=== PATIENT | male | born 1950 | race Caucasian/White ===

== ENCOUNTER 2019-06-19 05:36 | Emergency (ER) | payer OTHER ==
[2019-06-19 06:29] LABS: Absolute Lymphocytes (CBC) 1.8 K/uL (0.7-4.9); Basophils % 1.2 % (0-1.3); Hematocrit 42.5 % (39.6-49.0); Lymphocytes % 30.9 % (15.3-44.8); MPV 8.4 fL (7.6-11.3); RBC Red Blood Cell Count 4.67 M/uL (4.33-5.43)
[2019-06-19 06:41] LABS: Protime INR 0.99
[2019-06-19 06:50] LABS: ALT/SGPT 49 U/L (12-78); AST/SGOT 30 U/L (15-37); Albumin 3.4 g/dL (3.4-5.0); Alkaline Phosphatase 63 U/L (45-117); BUN Blood Urea Nitrogen 17 mg/dL (7-18); Bicarbonate 26 mmol/L (21-32); Bilirubin Direct 0.2 mg/dL (0-0.2); Bilirubin Total 0.5 mg/dL (0.2-1.0); Glucose Level 97 mg/dL (74-106); Magnesium 2.5 mg/dL (1.8-2.4); NT PRO-BNP 115 pg/mL (<125); Potassium 3.7 mmol/L (3.5-5.1); Protein, Total 6.6 g/dL (6.4-8.2); Sodium Level 144 mmol/L (136-145); Troponin (Emerg Dept Use Only) < 0.02 ng/mL (0.0-0.045)
--- NOTE | 2019-06-19 08:30 | RAD REPORT ---
EXAM DESCRIPTION: Antonio Single View06/19/2019 7:27 am CLINICAL HISTORY: Chest pain COMPARISON: none FINDINGS: The lungs appear clear of acute infiltrate. The heart is normal size IMPRESSION: No acute abnormalities displayed
--- NOTE | 2019-06-19 09:21 | EDPHYS ---
Physician Documentation [facility] Name: Kevon Alicea Age: 69 yrs Sex: Male : 1950 Arrival Date: 06/19/2019 Time: 05:37 Bed 15 Private MD: ED Physician Kofi Pena HPI: 06/19 06:19 This 69 yrs old Male presents to ER via Ambulatory with complaints of Chest kb Pain. 06:19 The patient or guardian reports chest pain that is located primarily in the chest kb diffusely. Onset: at 04:00. The pain radiates to left neck, left jaw. Associated signs and symptoms: The patient has no apparent associated signs or symptoms. The chest pain is described as "tight". Duration: The patient or guardian reports a single episode, that is now resolved. Modifying factors: The symptoms are alleviated by nothing. the symptoms are aggravated by nothing. Severity of pain: At its worst the pain was moderate in the emergency department the pain has resolved. The patient has not experienced similar symptoms in the past. The patient has not recently seen a physician. Pt reports he woke up with diffuse chest tightness and belching at 0400. States the pain radiated up to left neck/jaw. Pain has now resolved without any intervention. . Historical: - Allergies: 06:11 No Known Allergies; wh - PMHx: 06:11 Diabetes - IDDM; Hyperlipidemia; Hypertension; wh - PSHx: 06:11 Gastric Band; wh - Immunization history:: Adult Immunizations up to date. - Social history:: Smoking status: Patient/guardian denies using tobacco. - Ebola Screening: : Patient negative for fever greater than or equal to 101.5 degrees Fahrenheit, and additional compatible Ebola Virus Disease symptoms Patient denies exposure to infectious person. ROS: 06:30 Constitutional: Negative for fever, chills, and weight loss, ENT: Negative for injury, kb pain, and discharge, Neck: Negative for injury, pain, and swelling, Respiratory: Negative for shortness of breath, cough, wheezing, and pleuritic chest pain, Abdomen/GI: Negative for abdominal pain, nausea, vomiting, diarrhea, and constipation, Back: Negative for injury and pain, MS/Extremity: Negative for injury and deformity, Skin: Negative for injury, rash, and discoloration, Neuro: Negative for headache, weakness, numbness, tingling, and seizure. 06:30 Cardiovascular: Positive for chest pain, Negative for edema, orthopnea, palpitations, paroxysmal nocturnal dyspnea. Exam: 06:31 Constitutional: This is a well developed, well nourished patient who is awake, alert, kb and in no acute distress. Head/Face: Normocephalic, atraumatic. ENT: Nares patent. No nasal discharge, no septal abnormalities noted. Tympanic membranes are normal and external auditory canals are clear. Oropharynx with no redness, swelling, or masses, exudates, or evidence of obstruction, uvula midline. Mucous membranes moist. Neck: Trachea midline, no thyromegaly or masses palpated, and no cervical lymphadenopathy. Supple, full range of motion without nuchal rigidity, or vertebral point tenderness. No Meningismus. Chest/axilla: Normal chest wall appearance and motion. Nontender with no deformity. No lesions are appreciated. Cardiovascular: Regular rate and rhythm with a normal S1 and S2. No gallops, murmurs, or rubs. Normal PMI, no JVD. No pulse deficits. Respiratory: Lungs have equal breath sounds bilaterally, clear to auscultation and percussion. No rales, rhonchi or wheezes noted. No increased work of breathing, no retractions or nasal flaring. Abdomen/GI: Soft, non-tender, with normal bowel sounds. No distension or tympany. No guarding or rebound. No evidence of tenderness throughout. Skin: Warm, dry with normal turgor. Normal color with no rashes, no lesions, and no evidence of cellulitis. MS/ Extremity: Pulses equal, no cyanosis. Neurovascular intact. Full, normal range of motion. Neuro: Awake and alert, GCS 15, oriented to person, place, time, and situation. Cranial nerves II-XII grossly intact. Motor strength 5/5 in all extremities. Sensory grossly intact. Cerebellar exam normal. Normal gait. Vital Signs: 06:08 BP 130 / 87; Pulse 71; Resp 18; Temp 98.1; Pulse Ox 99% on R/A; wh 08:55 BP 146 / 78; Pulse 65; Resp 16 S; Pulse Ox 98% on R/A; jl7 MDM: 06:06 Patient medically screened. kb 06:30 The patient was not given aspirin in the Emergency Department. Patient reports taking aspirin within the past 24 hours. FAUSTO Risk Score: 1 - patient's age is greater or equal to 65 years. Data reviewed: vital signs, nurses notes. Data interpreted: Pulse oximetry: on room air is 99 %. Interpretation: normal. 06:30 ED course: HEART Score 4. kb 06:56 Counseling: I had a detailed discussion with the patient and/or guardian regarding: the kb historical points, exam findings, and any diagnostic results supporting the discharge/admit diagnosis, lab results, radiology results, the need for further work-up and treatment in the hospital. ED course: This is pt's first episode of chest pain, has no cardiac history, pain lasted approx 2 hours before resolving. Pt has history of diabetes, hypertension and hyperlipidemia. Discussed case with ERP and he recommends admitting for observation based on above information. . 06:56 Data reviewed: and as a result, I will admit patient. kb 07:01 ED course: Pt states he that if everything looks ok he is not staying here, he wants to kb go home. Discussed risks of leaving at this time. Convinced pt to stay for a repeat troponin and EKG two hours after the first was drawn. . 09:18 ED course: Pt educated on second troponin and EKG that were unchanged since the first. kb Still recommend admission, but pt states he feels fine now and wants to go home. Educated to follow up with DR Montiel. Pt saw [facility] in the past for routine workup including negative stress test at the time. . 06/19 06:11 Order name: Basic Metabolic Panel; Complete Time: 06:54 kb 06/19 06:11 Order name: CBC with Diff; Complete Time: 06:31 kb 06/19 06:11 Order name: LFT's; Complete Time: 06:54 kb 06/19 06:11 Order name: Magnesium; Complete Time: 06:54 kb 06/19 06:11 Order name: NT PRO-BNP; Complete Time: 06:54 kb 06/19 06:11 Order name: PT-INR; Complete Time: 06:47 kb 06/19 05:42 Order name: EKG; Complete Time: 05:43 rn 06/19 05:42 Order name: EKG - Nurse/Tech; Complete Time: 05:57 rn 10/16 06:11 Order name: Troponin (emerg Dept Use Only); Complete Time: 06:54 kb 06/19 06:11 Order name: XRAY Chest (1 view); Complete Time: 08:34 kb 06/19 06:11 Order name: Cardiac monitoring; Complete Time: 06:13 kb 06/19 08:35 Order name: EKG; Complete Time: 08:35 kb 06/19 08:35 Order name: Troponin (emerg Dept Use Only); Complete Time: 09:17 kb 06/19 06:11 Order name: IV Saline Lock; Complete Time: 06:13 kb 06/19 06:11 Order name: Labs collected and sent; Complete Time: 06:13 kb 06/19 06:11 Order name: O2 Per Protocol; Complete Time: 06:13 kb 06/19 06:11 Order name: O2 Sat Monitoring; Complete Time: 06:13 kb 06/19 08:35 Order name: EKG - Nurse/Tech; Complete Time: 08:55 kb Administered Medications: 06:38 Not Given (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 rn Disposition: 06/19/19 09:20 Discharged to Home. Impression: Chest pain, unspecified. - Condition is Stable. - Discharge Instructions: Nonspecific Chest Pain, [id number]. - Medication Reconciliation Form, Thank You Letter, Antibiotic Education, Prescription Opioid Use form. - Follow up: Emergency Department; When: As needed; Reason: Worsening of condition. Follow up: Private Physician; When: 2 - 3 days; Reason: Recheck today's complaints, Continuance of care, Re-evaluation by your physician. Signatures: Dispatcher [employer] EDMS Nany Ferreira, FUSE COILER-C FUSE COILER-Kofi Tello MD MD rn Leal, Jahala, RN RN Ivan Zaldivar Corrections: (The following items were deleted from the chart) 09:21 06:56 ED course: This is pt's first episode of chest pain, has no cardiac history, pain kb lasted approx 2 hours before resolving. Pt has history of diabetes, hypertension and hyperlipidemia. Discussed case with ERP and he recommends admitting for observation based on above information. . kb 09:39 09:20 06/19/2019 09:20 Discharged to Home. Impression: Chest pain, unspecified. jl7 Condition is Stable. Forms are Medication Reconciliation Form, Thank You Letter, Antibiotic Education, Prescription Opioid Use. Follow up: Emergency Department; When: As needed; Reason: Worsening of condition. Follow up: Private Physician; When: 2 - 3 days; Reason: Recheck today's complaints, Continuance of care, Re-evaluation by your physician. kb
--- NOTE | 2019-06-19 09:21 | ER ---
Nurse's Notes [facility] Name: Kevon Alicea Age: 69 yrs Sex: Male : 1950 Arrival Date: 06/19/2019 Time: 05:37 Bed 15 Private MD: Diagnosis: Chest pain, unspecified Presentation: 06/19 06:06 Presenting complaint: Patient states: He woke up at 4;00 am and developed chest pain wh 6/10 on a pain scale radiating to his neck and jaw. Pt took 4 baby aspirin at home and pain was not relieved. Transition of care: patient was not received from another setting of care. Onset of symptoms was June 19, 2019. Risk Assessment: Do you want to hurt yourself or someone else? Patient reports no desire to harm self or others. Initial Sepsis Screen: Does the patient meet any 2 criteria? No. Patient's initial sepsis screen is negative. Does the patient have a suspected source of infection? No. Patient's initial sepsis screen is negative. Care prior to arrival: None. 06:06 Method Of Arrival: Ambulatory 06:06 Acuity: ABRAHAM 3 Triage Assessment: 06:11 General: Behavior is calm, cooperative, appropriate for age. Historical: - Allergies: 06:11 No Known Allergies; - PMHx: 06:11 Diabetes - IDDM; Hyperlipidemia; Hypertension; - PSHx: 06:11 Gastric Band; - Immunization history:: Adult Immunizations up to date. - Social history:: Smoking status: Patient/guardian denies using tobacco. - Ebola Screening: : Patient negative for fever greater than or equal to 101.5 degrees Fahrenheit, and additional compatible Ebola Virus Disease symptoms Patient denies exposure to infectious person. Screenin:11 Abuse screen: Denies threats or abuse. Denies injuries from another. Nutritional screening: No deficits noted. Tuberculosis screening: No symptoms or risk factors identified. Fall Risk None identified. Assessment: 06:08 General: Appears in no apparent distress. Pain: Complains of pain in chest Pain wh radiates to neck Pain currently is 2 out of 10 on a pain scale. at worst was 6 out of 10 on a pain scale. Quality of pain is described as pressure, Pain began 2 hours ago. Neuro: Level of Consciousness is awake, alert, obeys commands, Oriented to person, place, time, situation, Appropriate for age. Cardiovascular: Heart tones S1 S2 Capillary refill < 3 seconds Rhythm is regular. Respiratory: Airway is patent Respiratory effort is even, unlabored, Respiratory pattern is regular, symmetrical, Breath sounds are clear bilaterally. GI: Abdomen is flat, non-distended. : No signs and/or symptoms were reported regarding the genitourinary system. EENT: No signs and/or symptoms were reported regarding the EENT system. Derm: Skin is intact, is healthy with good turgor, Skin is pink, warm \T\ dry. normal. Musculoskeletal: Circulation, motion, and sensation intact. 07:00 Reassessment: Patient appears in no apparent distress at this time. Patient and/or jl7 family updated on plan of care and expected duration. Pain level reassessed. Patient is alert, oriented x 3, equal unlabored respirations, skin warm/dry/pink. Patient denies pain at this time. 08:00 Reassessment: Patient appears in no apparent distress at this time. No changes from 7 previously documented assessment. Patient and/or family updated on plan of care and expected duration. Pain level reassessed. Patient is alert, oriented x 3, equal unlabored respirations, skin warm/dry/pink. Vital Signs: 06:08 BP 130 / 87; Pulse 71; Resp 18; Temp 98.1; Pulse Ox 99% on R/A; wh 08:55 BP 146 / 78; Pulse 65; Resp 16 S; Pulse Ox 98% on R/A; jl7 ED Course: 05:37 Patient arrived in ED. ds1 05:57 Ivan De Leon is Primary Nurse. 06:06 Nany Ferreira FNP-C is PHCP. kb 06:06 Kofi Pena MD is Attending Physician. kb 06:08 Triage completed. 06:11 Arm band placed on right wrist. 06:12 Patient has correct armband on for positive identification. Bed in low position. Call light in reach. Side rails up X 1. nuclear monitoring technician on. Pulse ox on. NIBP on. 06:12 Inserted saline lock: 20 gauge in right antecubital area, using aseptic technique. Blood collected. Patient maintains SpO2 saturation greater than 95% on room air. 07:28 XRAY Chest (1 view) In Process Unspecified. EDMS 08:44 EKG done, by collision technician. reviewed by Nany LOAIZA. at1 08:55 Repeat lab(s) drawn. by me, sent to lab. jl7 09:38 No provider procedures requiring assistance completed. IV discontinued, intact, jl7 bleeding controlled, No redness/swelling at site. Pressure dressing applied. 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 kwasi 09:38 Discharged to home ambulatory. jl7 09:38 Condition: stable 09:38 Discharge instructions given to patient, family, Instructed on discharge instructions, follow up and referral plans. Demonstrated understanding of instructions, follow-up care. 09:39 Patient left the ED. jl7 Signatures: Dispatcher [employer] Nany Cooper, STUDIO MUSICIAN-C STUDIO MUSICIAN-CkNisha Jamil ds1 Christine Nash, tower technician EKG Tat1 Armando Kauffman, RN RN jl7 Ivan De Leon
--- NOTE | 2019-06-19 09:32 | EKG ---
Test Date: 2019-06-19 Test Time: 08:39:39 Glove Presser: JULIAN MEASUREMENT RESULTS: Intervals: Rate: 60 CA: 234 QRSD: 134 QT: 412 QTc: 412 [place]: P: 45 CA: 234 QRS: -17 T: 10 INTERPRETIVE STATEMENTS: Sinus rhythm with 1st degree AV block Nonspecific intraventricular block Abnormal ECG Compared to ECG 06/19/2019 05:52:26 No significant changes Electronically Signed On 06-19-19 09:31:22 CDT by Josue Bentley
--- NOTE | 2019-06-19 09:33 | EKG ---
Test Date: 2019-06-19 Test Time: 05:52:26 Marketing Content Specialist: ORI MEASUREMENT RESULTS: Intervals: Rate: 71 GA: 234 QRSD: 134 QT: 412 QTc: 447 [place]: P: 26 GA: 234 QRS: -9 T: 9 INTERPRETIVE STATEMENTS: Sinus rhythm with 1st degree AV block Nonspecific intraventricular block Abnormal ECG Compared to ECG 06/17/2017 13:34:31 No significant changes Electronically Signed On 06-19-19 09:32:43 CDT by Josue Bentley
[2019-06-19 09:46] VITALS: TEMP 98.1
[2019-06-19 09:47] VITALS: BP 146/78; O2SAT 98
== END 2019-06-19 09:39 | disposition home or self-care (01) ==
LOC: ER 05:36
DX: R07.9 Chest pain, unspecified (principal)
CPT/HCPCS: 36415; 71045; 80048; 80076; 83735; 83880; 84484; 85025; 85610; 93005; 99285

== ENCOUNTER 2021-01-14 15:24 | Observation (INO) | payer OTHER ==
--- OUTSIDE RECORDS SUMMARY | 2021-01-14 15:32 | XMS REPORT | Continuity of Care Document ---
:1950 Author Organization [facility] t Address [address] [place] [address] Care Team Providers Name Role Phone Lisbeth Turner MD Attending Clinician Doctor Unassigned, Name Attending Clinician Unavailable Chetna Unger Attending Clinician Celia Trejo Admitting Clinician Payers Payer Name Policy Type Policy Number Effective Date Expiration Date S ource Problems Condition Condition Condition Status Onset Resolution Last Treating Co mments Source Name Details Category Date Date Treatment Clinician Date SDH Diagnosis Active 2016-092017-06-17 Mem oria 0-14 18:06:00 l SDH 00:00: [place] 00 Active 06/17/2017 [facility] SDH Diagnosis Active 2016-092018-01-12 Mem oria SUBDURAL 0-14 10:42:00 l HEMATOMA, SDH 00:00: [place] SCAULA FX, SUBDURAL 00 RIB FX HEMATOMA, SCAULA FX, RIB FX Active 06/17/2017 [facility] Sinusitis Problem Resolve 2017-06-29 M emoria (disorder) d 00:57:10 l [place]avo Sinusitis (disorder) Resolved Problem 06/29/2017 [facility] NONTRAUMAT Diagnosis Active 2018-01-12 Memoria IC 10:42:00 l SUBARACHNO Simone n ID NONTRAUMAT HEMORRHAGE IC , UN SUBARACHNO ID HEMORRHAGE , UN Active [facility] FRACTURE Diagnosis Active 2018-01-12 M emoria OF UNSP 10:42:00 l PART OF FRACTURE Claudia nn SCAPULA, OF UNSP UNSP S PART OF SCAPULA, UNSP S Active [facility] FRACTURE Diagnosis Active 2018-01-12 M emoria OF ONE 10:42:00 l RIB, UNSP FRACTURE Her carcamo SIDE, INIT OF ONE FOR RIB, UNSP SIDE, INIT FOR Active [facility] Benign Problem Resolve 2017-06-29 Sanjay gavi prostatic d 00:57:10 l hyperplasi Benign Herm akshat a prostatic (disorder) hyperplasi a (disorder) Resolved Problem 06/29/2017 [facility] Diabetes Problem Resolve 2017-06-29 Me moria mellitus d 00:57:10 l (disorder) Diabetes He rmann mellitus (disorder) Resolved Problem 06/29/2017 [facility] dm Problem Resolve 2017-06-29 Sanjay gavi (qualifier d 00:57:10 l value) dm [place] (qualifier value) Resolved Problem 06/29/2017 [facility] Hyperlipid Problem Resolve 2017-06-29 Memoria emia d 00:57:10 l (disorder) Simone n Hyperlipid emia (disorder) Resolved Problem 06/29/2017 [facility] Essential Problem Resolve 2017-06-29 M emoria hypertensi d 00:57:10 l on [place] (disorder) Essential hypertensi on (disorder) Resolved Problem 06/29/2017 [facility] Hypertensi Problem Resolve 2017-06-29 Memoria ve d 00:57:10 l disorder, [place] systemic Hypertensi arterial ve (disorder) disorder, systemic arterial (disorder) Resolved Problem 06/29/2017 [facility] Allergies, Adverse Reactions, Alerts Allergy Allergy Status Severity Reaction(s) Onset Inactive Treating Comm ents Source Name Type Date Date Clinician No Known DA Active U 2018-09 [facility]: [address] No Known DA Active U 2018-09 [facility]: [address] No Known DA [facility] [place] [facility] 00:00: [address] No Known DA [facility] Drug 01-02 [place] [facility] 00:[facility]: [address] No Known DA [facility] 01-02 [place] [facility] 00:00: [address] No Known DA [facility] Other 01-02 [place] [facility] 00:00: [address] Social History Social Habit Start Date Stop Date Quantity Comments Source Social History 2017-06-18 2017-06-18 [facility] 05:20:48 05:20:48 Medications Ordered Filled Start Stop Current Ordering Indication Dosage Frequency Signature Comments Components Source Medication Medication Date Date Medication? Clinician (SIG) Name Name Acetaminoph 2016-09 Yes 650 mg = 2 Memoria en 325 MG 0-23 cap, PO, l Oral 18:18: TID, PRN [place] Capsule 00 pain 1-5, [Tylenol] X 7 day, # 42 cap, 0 Refill(s), Pharmacy: [facility]08 tramadol 2016-09 Yes 100 mg = 2 Mem oria hydrochlori 0-23 tab, PO, l de 50 MG 18:18: Q6H, PRN Claudia nn Oral Tablet 00 Pain Score 6-10, X 7 day, # 56 tab, 0 Refill(s) lisinopril 2016-09 Yes 40 mg = 1 Me moria 40 mg oral 0-23 tab, PO, l tablet 17:33: Daily, # Gustavo 00 30 tab, 0 Refill(s), Pharmacy: [facility] 8 Aspirin 325 2016-09 Yes 325 mg = 1 Memoria MG Enteric 0-23 tab, PO, l Coated 17:33: Daily, # [place]avo Tablet 00 14 tab, 0 Refill(s), Pharmacy: [facility]08 gabapentin 2016-09 Yes 100 mg = 1 M emoria 100 MG Oral 0-23 cap, PO, l Capsule 17:33: Q8H, # 42 Claudia nn 00 cap, 0 Refill(s), Pharmacy: [facility]08 Docusate 2016-09 Yes 100 mg = 1 Mem oria Sodium 100 0-23 cap, PO, l MG Oral 17:33: Q12H, # 20 Herm akshat Capsule 00 cap, 0 Refill(s), Pharmacy: [facility]08 cetirizine 2016-09 Yes 10 mg = 1 Me moria 10 mg oral 0-23 tab, PO, l tablet 17:33: Daily, PRN Claudia nn 00 Allergies, # 30 tab, 0 Refill(s), Pharmacy: [facility] amLODIPine 2016-09 Yes 10 mg = 1 Me moria 10 mg oral 0-23 tab, PO, l tablet 17:33: Daily, # Gustavo 00 30 tab, 0 Refill(s), Pharmacy: [facility] Nystatin 2016-09 Yes 1 appl, Memori a 100 UNT/MG 0-23 TOP, QID, l Topical 17:33: apply to Simone n Powder 00 right upper arm, X 7 day, # 15 gm, 0 Refill(s), Pharmacy: [facility] Lidocaine 2016-09 Yes 1 patch, Sanjay gavi Hydrochlori 0-23 TOP, Q24H, l de 0.05 17:33: remove [place] MG/MG 00 patches Transdermal after 12 Patch hours, # [Lidoderm] 14 patch, 0 Refill(s), Pharmacy: [facility] POLYETHYLEN 2016-09 Yes 17 gm, PO, Memoria E GLYCOL 0-23 Daily, l 3350 142 17:33: dissolve Claudia nn MG/ML Oral 00 in water Solution or juice [Miralax] hold for diarrhea, X 12 day, # 12 ea, 0 Refill(s), Pharmacy: [facility] Hydralazine 2016-09 Yes 25 mg = 1 M emoria Hydrochlori 0-23 tab, PO, l de 25 MG 17:33: Q6H, # 120 Her carcamo Oral Tablet 00 tab, 0 Refill(s), Pharmacy: [facility] Hydralazine 2016-09 No Notes: Sanjay gavi Hydrochlori 0-23 (Same as: l de 25 MG 05:00: Apresoline Her carcamo Oral Tablet 00 ) May interfere w/enteral feedings Take With Food. Iohexol 2016-09 No Notes: Memoria 0-22 (Same l 19:52: as:Omnipaq Gustavo 00 ue 350). WASTE: F/P - Black; E - Municipal Trash Bin Albuterol 2016-09 No Notes: SEE Me moria 0.83 MG/ML 0-22 RT l Inhalant 18:42: DOCUMENTAT Her carcamo Solution 00 ION (Same as: Proventil) Insulin 2016-09 No Notes: Memoria Glargine 0-22 Same as: l 100 UNT/ML 14:00: Lantus) Do H ermann Injectable 00 not hold Solution insulin [Lantus] without contacting prescriber WASTE: F/P - Black; E - Municipal Trash Bin Amlodipine 2016-09 No Notes: Memor ia 0-22 (Same as: l 14:00: Norvasc) Gustavo 00 Lisinopril 2016-09 No Notes: Memor ia 0-21 (Same as: l 14:00: Prinivil, Gustavo 00 Zestril) Lisinopril 2016-09 No Notes: Memor ia 0-20 (Same as: l 14:52: Prinivil, Gustavo 00 Zestril) Labetalol 2016-09 No 10 mg, 2 Sanjay gavi 0-20 mL, Route: l 05:08: IVP, Drug Gustavo 00 form: INJ, Q15Min, Dosing Weight 113.636, kg, PRN Hypertensi on, Start date: 06/23/17 0:08:00 CDT, Duration: 3 doses or times, Stop date: 07/23/17 0:00:00 BIOLOGY PROFESSOR tramadol 2016-09 No 2 tab, Memoria hydrochlori 0-20 Route: PO, l de 50 MG 03:21: Drug form: Her carcamo Oral Tablet 00 TAB, ONCE, Dosing Weight 113.636, kg, Start date: 06/22/17 22:21:00 CDT, Stop date: 06/22/17 22:21:00 CDT Calmoseptin 2016-09 No Notes: Sanjay gavi e 0-19 (Same as: l 22:00: Calmosepti Gustavo 00 ne) Amlodipine 2016-09 No Notes: Memor ia 0-19 (Same as: l 20:17: Norvasc) Gustavo 00 Fluticasone 2016-09 No Notes: Sanjay gavi propionate 0-19 (Same as: l 0.05 20:14: Flonase) [place] MG/ACTUAT 00 Metered Dose Nasal [place] [Flonase] molasses 2016-09 No Notes: Memoria 0-19 (Same l 20:13: as:Molasse [place] 00 s) Dulcolax 2016-09 No Notes: Memoria Laxative 0-19 (Same As: l 20:12: Dulcolax, [place] 00 Bisco-Lax) Miralax 2016-09 No Notes: Memoria 0-19 Dissolve l 17:50: in 8 oz of Gustavo 00 water or juice. (Same as: Miralax) Streptococc 2016-09 No Notes: Sanjay gavi us 0-19 Shake well l pneumoniae 14:00: prior to Her carcamo serotype 1 00 use (Same capsular as: antigen Prevnar diphtheria 13) [id number] protein conjugate vaccine / Streptococc us pneumoniae serotype 14 capsular antigen diphtheria [id number] protein conjugate vaccine / Streptococc us pneumoniae serotype 18C capsular antigen d Lisinopril 2016-09 No Notes: Memor ia 0-19 (Same as: l 14:00: Prinivil, Gustavo 00 Zestril) influenza 2016-09 No Notes: Memori a virus 0-19 (Same as: l vaccine, 14:00: Fluzone Simone n inactivated 00 Quadrivale nt, Fluarix Quadrivale nt) For 3 years of age and older (0.5 mL IM) Shake well before use Acetaminoph 2016-09 No Notes: Do M emoria en 0-19 not exceed l 10:59: 4 gm/day. [place] 00 (Same as: Tylenol) Zofran 2016-09 No Notes: Memoria 0-19 (Same as: l 00:00: Zofran) Gustavo 00 MEDICATION WASTE Product Size: 4 mg Product Wasted: _0__ mg Nystatin 2016-09 No Notes: Memoria 100 UNT/MG 0-18 (Same l Topical 18:00: as:Mycosta Herm akshat Powder 00 tin, Nilstat) For external use only. cetirizine 2016-09 No Notes: Memor ia 0-18 (Same As: l 13:13: Zyrtec) Gustavo 00 Claritin 2016-09 No 10 mg, Memoria 0-18 Route: PO, l 12:53: Drug form: Gustavo 00 TAB, Daily, Dosing Weight 113.636, kg, PRN Allergies, Start date: 06/21/17 7:53:00 CDT, Duration: 30 day, Stop date: 07/21/17 7:52:00 BIOLOGY PROFESSOR Zofran 2016-09 No Notes: Memoria 0-18 (Same as: l 10:40: Zofran) [place] MEDICATION WASTE Product Size: 4 mg Product Wasted: ___ mg Aspirin 325 2016-09 No Notes: (Do Memoria MG Enteric 0-17 Not Crush) l Coated 20:00: Do not Gustavo Tablet 00 crush or chew. Acetaminoph 2016-09 No Notes: Sanjay gavi en 325 MG / 0-17 (Same as: l Hydrocodone 13:41: [place] Claudia nn Bitartrate 00 325/5) Do 5 MG Oral not exceed Tablet 4gm/day of [[place] acetaminop 5/325] hen. Deep Sea 2016-09 No Notes: Memoria Nasal [place] 0-17 (Same as: l 03:17: [place], [place] Deep Sea Nasal [place]). Sodium 2016-09 No Notes: Memoria Chloride 0-16 (Same as: l 0.111 23:41: [place], [place] MEQ/ML 00 [place] Nasal [place] Nasal [[place]). brand of sodium chloride] Lisinopril 2016-09 No Notes: Memor ia 0-16 (Same as: l 22:43: Prinivil, Gustavo Zestril) 3 ML 2016-09 Yes 60 unit, Memoria insulin 0-16 SUB-Q, l degludec 18:41: Daily, 0 Claudia nn 200 UNT/ML 00 Refill(s) Pen Injector [Tresiba] Folic Acid 2016-09 No Notes: Memor ia 0-16 (Same as: l 14:00: Folvite) Gustavo Thiamine 2016-09 No Notes: Memoria 0-16 (Same As: l 14:00: Vitamin Gustavo B1) multivitami 2016-09 No Notes: Sanjay gavi n 0-16 (Same l 14:00: as:Thera) [place] WASTE: F/P - Black; E - Municipal Trash Bin Take with food. gabapentin 2016-09 No Notes: Memor ia 100 MG Oral 0-16 (Same as: l Capsule 05:00: Neurontin) Herm akshat Lovenox 2016-09 No Notes: Memoria 0-16 (Same as: l 02:00: Lovenox) Gustavo 00 sennosides, 2016-09 No Notes: Sanjay gavi FCI 0-16 (Same as: l 02:00: Senokot) empaglifloz 2016-09 Yes 1 tab, PO, Memoria in 5 MG / 0-15 BID, 0 l Metformin 22:45: Refill(s) Her carcamo hydrochlori 00 de 1000 MG Oral Tablet [Synjardy] 3 ML 2016-09 No SUB-Q, Memoria insulin 0-15 BID-Meals, l degludec 22:45: 0 [place] 100 UNT/ML 00 Refill(s) Pen Injector [Tresiba] remove 2016-09 No 1 patch, Memoria patch 0-15 Route: l 15:00: TOP, Q24H, [place] 00 Drug form: ERFILM, Start date: 06/18/17 10:00:00 CDT, Duration: 30 day, Stop date: 07/17/17 12:00:00 BIOLOGY PROFESSOR Marivelra 2016-09 No Notes: Memoria 0-15 (Same l 14:00: as:Keppra) Gustavo 00 Docusate 2016-09 No Notes: Memoria 0-15 (Same as: l 14:00: Colace) (Do Not Crush) Lidocaine 2016-09 No Notes: Memori a Hydrochlori 0-15 Apply only l de 0.05 03:00: once for Simone n MG/MG 00 up to 12 Transdermal hours in a Patch 24-hour [Lidoderm] period (12 hours on and 12 hours off). (Same as: Lidoderm) "Remove old patch before applicatio n of new patch" Acetaminoph 2016-09 No Notes: Max Memoria en 0-15 acetaminop l 02:13: hen 4000 Gustavo 00 mg/day (4 gm/day). (Same as: Tylenol Extra Strength) Tramadol 2016-09 No Notes: Not Mem oria 0-15 to exceed l 02:13: 400mg/day. [place] 00 (Same As: Ultram) pregabalin 2016-09 No Notes: Memor ia 0-15 (Same as: l 02:13: Lyrica) celecoxib 2016-09 No Notes: Memori a 0-15 NSAID. l 02:13: Please Gustavo 00 check indication . Not for seizure. (Same As: CeleBREX ) Insulin 2016-09 No 60 Memoria regular 0-15 units) l 02:09: WASTE: F/P [place] - Black; E - Municipal Trash Bin Stable for 28 days at room temperatur e Expires in days from ____Date BD Normal 2016-09 No Notes: Memori a Saline 0-15 (Same as: l Flush 02:00: BD Posiflush) Morphine 2016-09 No 4 mg, Memoria 0-14 Route: l 22:44: IVP, ONCE, Dosing Weight 117, kg, Priority: STAT, Start date: 06/17/17 17:44:00 CDT, Stop date: 06/17/17 17:44:00 CDT Levetiracet 2016-09 No Notes: Sanjay gavi am 500 MG 0-14 (Same l Oral Tablet 22:00: as:Keppra) Gustavo [Yoandy] iodixanol 2016-09 No 130 mL, Memor ia 0-14 Route: l 21:56: IVP, Drug Form: SOLN, Dosing Weight 117, kg, ONCALL, STAT, Start date: 06/17/17 16:56:00 CDT, Duration: 1 doses or times, Dose = 2.2ml/kg, Max dose = 150ml -- "To be infused by Radiology Staff ONLY" Keppra 2016-09 No 1,000 mg, Memori a 0-14 Route: IV, l 21:28: ONCE, Dosing Weight 117, kg, Start date: 06/17/17 16:28:00 CDT, Stop date: 06/17/17 16:28:00 CDT Morphine 2016-09 No 8 mg, Memoria 0-14 Route: l 20:52: IVP, ONCE, Dosing Weight 117, kg, Priority: STAT, Start date: 06/17/17 15:52:00 CDT, Stop date: 06/17/17 15:52:00 CDT Saline 2016-09 No Notes: Memoria Flush 0.9% 0-14 (Same as: l 20:23: BD [place] 00 Posiflush) Vital Signs Vital Name Observation Time Observation Value Comments Source Systolic (mm Hg) 2017-06-26 17:28:00 Sanjay rial [place] Diastolic (mm Hg) 2017-06-26 17:28:00 Mem orial [place] Temperature Oral (F) 2017-06-26 17:28:00 98.1 F [facility] [place] Respitory Rate 2017-06-26 17:28:00 Memori al [place]avo Heart Rate 2017-06-26 17:28:00 [facility] [place] Systolic (mm Hg) 2017-06-26 14:29:00 Sanjay rial [place] Diastolic (mm Hg) 2017-06-26 14:29:00 Mem orial [place] Respitory Rate 2017-06-26 14:29:00 Memori al [place]avo Heart Rate 2017-06-26 14:29:00 [facility] [place] Temperature Oral (F) 2017-06-26 14:29:00 98.1 F [facility] [place] Systolic (mm Hg) 2017-06-26 13:53:00 Sanjay rial [place] Diastolic (mm Hg) 2017-06-26 13:53:00 Mem orial [place] Respitory Rate 2017-06-26 13:53:00 Memori al [place] Heart Rate 2017-06-26 13:53:00 [facility] [place] Temperature Oral (F) 2017-06-26 13:53:00 98.5 F [facility] [place] BMI Calculated 2017-06-18 04:57:00 Memori al [place] Weight 2017-06-18 04:57:00 [facility] [place] Height 2017-06-18 04:57:00 182.88 cm [facility] [place] BMI Calculated 2017-06-17 20:01:00 Memori al [place] Height 2017-06-17 20:01:00 180.34 cm [facility] [place] Weight 2017-06-17 20:01:00 [facility] [place] Procedures Procedure Date / Time Performing Clinician Source Performed Cholecystectomy [facility] [place] Gastric [facility] [place] operation<sup>1</sup> Shoulder repair [facility] [place] Encounters Start End Encounter Admission Attending Care Care Encounter Source Date/Time Date/Time Type Type Clinicians Facility Department ID 2020-03-17 2020-03-17 [facility] [id number] 09:09:00 23:59:00 Encounter Robbie menard [id number] [place] [id number] [place] [id number] 2020-03-17 2020-03-17 [facility] [id number] 09:08:00 09:08:00 Encounter Robbie menard [id number] [place] [id number] [place] [id number] 2020-03-17 2020-03-17 Orders Doctor SUAD [id number] 00:00:00 00:00:00 Only Unassigned, [place] [id number] [place] [facility] [id number] 2020-02-14 2020-02-14 [facility] [id number] 12:03:00 23:59:00 Encounter eRobbie Edda [id number] [place] [id number] [place] [id number] 2020-02-14 2020-02-14 Orders Doctor SUAD [id number] 00:00:00 00:00:00 Only Unassigned, DECLAN [id number] [place] [id number] [id number] 2017-06-17 2017-06-26 [facility] [id number] 15:00:00 16:30:00 Selena Basilio 87 Results Test Description Test Time Test Comments Results Result Comments Source CBC W/AUTO DIFF 2021-01-09 06:25:00 Test Item Value Reference Range Interpretation Comme nts WHITE BLOOD CELL (test code = WBC) 5.5 K/MM3 3.8-9.8 N RED BLOOD CELL (test code = RBC) 5.16 M/MM3 3.95-5.67 N HEMOGLOBIN (test code = HGB) 16.0 G/DL 12.4-16.7 N HEMATOCRIT (test code = HCT) 47.7 % 35.9-49.5 N MEAN CELL VOLUME (test code = MCV) 92 fL 81.7-96.1 N MEAN CELL HGB (test code = MCH) 31.0 pg 27.6-33.2 N MEAN CELL HGB CONCETRATION (test code = MCHC) 33.5 % 32.9-35. 5 N RED CELL DISTRIBUTION WIDTH (test code = RDW) 12.9 % 12.1-15. 2 N PLATELET COUNT (test code = PLT) 203 K/MM3 129-368 N MEAN PLATELET VOLUME (test code = MPV) 9.8 fl 7.4-10.4 N NEUTROPHIL % (test code = NT%) 51.9 % 43-75 N IMMATURE GRANULOCYTE % (test code = IG%) 0.0 % 0.0-2.0 N LYMPHOCYTE % (test code = LY%) 31.9 % 14-44 N MONOCYTE % (test code = MO%) 10.0 % 4-13 N EOSINOPHIL % (test code = EO%) 5.3 % 0-6 N BASOPHIL % (test code = BA%) 0.9 % 0-2 N NUCLEATED RBC % (test code = NRBC%) 0.0 % 0-1.0 N NEUTROPHIL # (test code = NT#) 2.86 K/mm3 2.0-7.6 N IMMATURE GRANULOCYTE # (test code = IG#) 0.00 x10 3/uL 0-0.03 N LYMPHOCYTE # (test code = LY#) 1.76 K/mm3 1.0-3.8 N MONOCYTE # (test code = MO#) 0.55 K/mm3 0.1-0.8 N EOSINOPHIL # (test code = EO#) 0.29 K/mm3 0.0-0.2 H BASOPHIL # (test code = BA#) 0.05 K/mm3 0.0-0.2 N NUCLEATED RBC # (test code = NRBC#) 0.00 K/mm3 0.0-0.1 N BASIC METABOLIC [id number] 06:11:00 Test Item Value Reference Range Interpretation Comments SODIUM (test code = 141 MMOL/L 137-145 N NA) POTASSIUM (test code = 4.2 MMOL/L 3.5-5.1 N K) CHLORIDE (test code = 106 MMOL/L 98-107 N CL) CARBON DIOXIDE (test 28 MMOL/L 22-30 N code = CO2) ANION GAP (test code = 11 MMOL/L 14-24 L GAP) GLUCOSE (test code = 140 MG/DL 74-106 H GLU) BLOOD UREA NITROGEN 20 MG/DL 9-20 (test code = BUN) GLOMERULAR FILTRATION > 60 Report ing units: RATE (test code = GFR) ml/mi n/1.73 m2 (Modified MDRD Formula)Referen ce Range: > or = 6 0 ml/min/1.73 m2 CREATININE (test code 0.90 MG/DL 0.66-1.25 N = CREAT) CALCIUM (test code = 9.2 MG/DL 8.4-10.2 N CA) LIPID PROFILE (CORONARY RISK)2021-01-09 06:11:00 Test Item Value Reference Range Interpretation Comments TRIGLYCERIDES (test 135 MG/DL TRIGLYCE RIDES code = TRIG) REFERENCE RANGE:Normal: < 150 mg/dLBorderline High: 150-199 mg/dLHi gh: 200-499 mg/dLVe ry High: >=500 mg/ dL CHOLESTEROL (test code 144 MG/DL <200 = CHOL) HDL CHOLESTEROL (test 29 MG/DL 40-59 L code = HDL) LIPOPROTEIN LDL (test 89 MG/DL 0-99 N code = LDL) OPTIMAL........ .<100 mg/dLNEAR OPTIMAL/ABOVE OPTIMAL........ .100-12 9 mg/dL BORDERLINE HIGH.........13 0-159 mg/dL HIGH.........16 0-189 mg/dL VERY HIGH...... ...>/= 190 mg/dL [id number] 06:11:00 Test Item Value Reference Range Interpretation Comments MAGNESIUM (test code = MAG) 2.3 MG/DL 1.6-2.3 N PROTHROMBIN [id number] 06:08:00 Test Item Value Reference Range Interpretation Comments PROTHROMBIN TIME PATIENT 11.1 9.5-12.7 N (test code = PTP) INTERNATIONAL NORMAL RATIO 1.0 0.86-1.14 N T he INR is to be used (test code = INR) only for m onitoring oral anticoagulantth erapy. INDICATION INR VALUE ------- ------- -----1. Prophylaxis, d eep venous thrombos is, including high risk surgery. 2.0 - 3.0 2. Prophylaxis, de ep venous thrombos is, hip surgery, tr eatment for deep venous thrombosis or pulmonary preve ntion of systemic embolism in pat ients with valvula r heart disease, atrial fibrillation, tissue heart va lve, or acute myocardia l infarction. 2.0 - 3.0 3. Mechanical pros thesis heart valves, recurrent syste karan embolism. 3.0 - 4.5 PTT [id number] 06:08:00 Test Item Value Reference Range Interpretation Comments PTT ACTIVATED (test code = APTT) 32.5 SECONDS 25.1-36.5 N BASIC METABOLIC [id number] 06:00:00 Test Item Value Reference Range Interpretation Comments SODIUM (test code = 141 MMOL/L 137-145 N NA) POTASSIUM (test code = 4.2 MMOL/L 3.5-5.1 N K) CHLORIDE (test code = 106 MMOL/L 98-107 N CL) CARBON DIOXIDE (test 28 MMOL/L 22-30 N code = CO2) ANION GAP (test code = 11 MMOL/L 14-24 L GAP) GLUCOSE (test code = 140 MG/DL 74-106 H GLU) BLOOD UREA NITROGEN 20 MG/DL 9-20 (test code = BUN) GLOMERULAR FILTRATION > 60 Report ing units: RATE (test code = GFR) ml/mi n/1.73 m2 (Modified MDRD Formula)Referen ce Range: > or = 6 0 ml/min/1.73 m2 CREATININE (test code 0.90 MG/DL 0.66-1.25 N = CREAT) CALCIUM (test code = 9.2 MG/DL 8.4-10.2 N CA) LIPID PROFILE (CORONARY RISK)2021-01-09 06:00:00 Test Item Value Reference Range Interpretation Comments TRIGLYCERIDES (test 135 MG/DL TRIGLYCE RIDES code = TRIG) REFERENCE RANGE:Normal: < 150 mg/dLBorderline High: 150-199 mg/dLHi gh: 200-499 mg/dLVe ry High: >=500 mg/ dL CHOLESTEROL (test code 144 MG/DL <200 = CHOL) HDL CHOLESTEROL (test 29 MG/DL 40-59 L code = HDL) LIPOPROTEIN LDL (test MG/DL 0-99 code = LDL) [id number] 06:00:00 Test Item Value Reference Range Interpretation Comments MAGNESIUM (test code = MAG) 2.3 MG/DL 1.6-2.3 N COVID 19 Asymptomatic IH [id number] 04:48:00 Test Item Value Reference Range Interpretation Comments COVID 19 NEGATIVE Negative "Negative resul ts from Asymptomatic IH AG patients with symptom (test code = onset beyondfiv e days, COVNONPUIAG) should be hetal christy as presumptive, andconfirmation with a molecular assay , if necessary forpa tient management may be performed. Nega tive results do notr ule out COVID-19 and sh ould not be used as the sole basisfor treatm ent or patient managem ent decisions, includinginfect ion control decisio ns. Negative result s should beconsidered in the context of a pa tients recent exposure s,history, and the presenc e of clinical signs and symptomsconsist ent with COVID-19.This t est detects both vi able andnon-viable S ARS-CoV and SARS CoV-2. Test performance dep endson the amount of virus (antigen) in the sample." Spec Comments: PLEASE DO CHERI, PATIENT HAVING PROCEDUREGLUCOSE BEDSIDE TESTING 2019-07-02 08:29:00 Test Item Value Reference Range Interpretation Comments GLUCOSE BEDSIDE TESTING 188 MG/DL 60-99 H Noti fied Nurse~ (test code = GLUBED) GLUCOSE BEDSIDE [id number] 09:09:00 Test Item Value Reference Range Interpretation Comments GLUCOSE BEDSIDE TESTING (test code 157 MG/DL 60-99 H = GLUBED) BASIC METABOLIC [id number] 07:58:00 Test Item Value Reference Range Interpretation Comments SODIUM (test code = 138 MMOL/L 137-145 N NA) POTASSIUM (test code = 4.1 MMOL/L 3.5-5.1 N K) CHLORIDE (test code = 108 MMOL/L 98-107 H CL) CARBON DIOXIDE (test 24 MMOL/L 22-30 N code = CO2) ANION GAP (test code = 10 MMOL/L 14-24 L GAP) GLUCOSE (test code = 166 MG/DL 74-106 H GLU) BLOOD UREA NITROGEN 17 MG/DL 9-20 N (test code = BUN) GLOMERULAR FILTRATION > 60 Report ing units: RATE (test code = GFR) ml/mi n/1.73 m2 (Modified MDRD Formula)Referen ce Range: > or = 6 0 ml/min/1.73 m2 CREATININE (test code 0.90 MG/DL 0.66-1.25 N = CREAT) CALCIUM (test code = 8.7 MG/DL 8.4-10.2 N CA) CBC W/AUTO [id number] 07:15:00 Test Item Value Reference Range Interpretation Comments WHITE BLOOD CELL (test code = 7.5 K/MM3 3.8-9.8 N WBC) RED BLOOD CELL (test code = 4.14 M/MM3 3.95-5.67 RBC) HEMOGLOBIN (test code = HGB) 12.9 G/DL 12.4-16.7 HEMATOCRIT (test code = HCT) 39.0 % 35.9-49.5 MEAN CELL VOLUME (test code = 94 fL 81.7-96.1 N MCV) MEAN CELL HGB (test code = MCH) 31.2 pg 27.6-33.2 N MEAN CELL HGB CONCETRATION 33.1 % 32.9-35.5 N (test code = MCHC) RED CELL DISTRIBUTION WIDTH 13.0 % 12.1-15.2 N (test code = RDW) PLATELET COUNT (test code = 179 K/MM3 129-368 PLT) MEAN PLATELET VOLUME (test code 10.3 fl 7.4-10.4 N = MPV) NEUTROPHIL % (test code = NT%) 65.2 % 43-75 N IMMATURE GRANULOCYTE % (test 0.3 % 0.0-2.0 N code = IG%) LYMPHOCYTE % (test code = LY%) 23.7 % 14-44 N MONOCYTE % (test code = MO%) 7.8 % 4-13 N EOSINOPHIL % (test code = EO%) 2.3 % 0-6 N BASOPHIL % (test code = BA%) 0.7 % 0-2 N NUCLEATED RBC % (test code = 0.0 % 0-1.0 N NRBC%) NEUTROPHIL # (test code = NT#) 4.89 K/mm3 2.0-7.6 N IMMATURE GRANULOCYTE # (test 0.02 x10 3/uL 0-0.03 N code = IG#) LYMPHOCYTE # (test code = LY#) 1.77 K/mm3 1.0-3.8 N MONOCYTE # (test code = MO#) 0.58 K/mm3 0.1-0.8 N EOSINOPHIL # (test code = EO#) 0.17 K/mm3 0.0-0.2 N BASOPHIL # (test code = BA#) 0.05 K/mm3 0.0-0.2 N NUCLEATED RBC # (test code = 0.00 K/mm3 0.0-0.1 N NRBC#) GLUCOSE BEDSIDE [id number] 17:53:00 Test Item Value Reference Range Interpretation Comments GLUCOSE BEDSIDE TESTING (test code 138 MG/DL 60-99 H = GLUBED) [id number] 12:21:00 Test Item Value Reference Range Interpretation Comments ACT-ISTAT (test code = ACTI) 230 SEC 74-137 H BASIC METABOLIC [id number] 08:08:00 Test Item Value Reference Range Interpretation Comments SODIUM (test code = 140 MMOL/L 137-145 N NA) POTASSIUM (test code = 4.2 MMOL/L 3.5-5.1 N K) CHLORIDE (test code = 106 MMOL/L 98-107 N CL) CARBON DIOXIDE (test 28 MMOL/L 22-30 N code = CO2) GLUCOSE (test code = 121 MG/DL 74-106 H GLU) BLOOD UREA NITROGEN 19 MG/DL 9-20 N (test code = BUN) GLOMERULAR FILTRATION > 60 Report ing units: RATE (test code = GFR) ml/mi n/1.73 m2 (Modified MDRD Formula)Referen ce Range: > or = 6 0 ml/min/1.73 m2 CREATININE (test code 1.00 MG/DL 0.66-1.25 N = CREAT) CALCIUM (test code = 9.2 MG/DL 8.4-10.2 N CA) LIPID PROFILE (CORONARY RISK)2019-06-29 08:08:00 Test Item Value Reference Range Interpretation Comments TRIGLYCERIDES (test 101 MG/DL TRIGLYCE RIDES code = TRIG) REFERENCE RANGE:Normal: < 150 mg/dLBorderline High: 150-199 mg/dLHi gh: 200-499 mg/dLVe ry High: >=500 mg/ dL CHOLESTEROL (test code 128 MG/DL <200 = CHOL) HDL CHOLESTEROL (test 39 MG/DL 40-59 L code = HDL) LIPOPROTEIN LDL (test 80 MG/DL 0-99 N code = LDL) OPTIMAL........ .<100 mg/dLNEAR OPTIMAL/ABOVE OPTIMAL........ .100-12 9 mg/dL BORDERLINE HIGH.........13 0-159 mg/dL HIGH.........16 0-189 mg/dL VERY HIGH...... ...>/= 190 mg/dL [id number] 08:08:00 Test Item Value Reference Range Interpretation Comments MAGNESIUM (test code = MAG) 2.2 MG/DL 1.6-2.3 N PROTHROMBIN [id number] 07:59:00 Test Item Value Reference Range Interpretation Comments PROTHROMBIN TIME 9.9 SECONDS 9.6-11.6 N PATIENT (test code = PTP) INTERNATIONAL NORMAL 0.9 0.8-1.1 N The INR is to be RATIO (test code = INR) used only for monitoring oral anticoagulantth erap y. INDICATION I NR VALUE ---- ---- ---- -------1. Prophylaxis, de ep venous thrombos is, including hig h risk surgery. 2.0 - 3.0 2. Prophylaxis, de ep venous thrombos is, hip surgery, treatment for d eep venous thrombosis or pulmonary prevention of systemic emboli sm in patients wit h valvular heart disease, atrial fibrillation, tissue heart va lve, or acute myocar dial infarction. 2.0 - 3 .0 3. Mechanical prosthesis hear t valves, recurrent syste karan embolism. 3.0 - 4.5 Comments to [employer]: WILL BRING TO LABPTT [id number] 07:59:00 Test Item Value Reference Range Interpretation Comments PTT ACTIVATED (test code = APTT) 26.2 SECONDS 22.0-33.0 N Comments to [employer]er: WILL BRING TO LABBASIC METABOLIC [id number] 07:58:00 Test Item Value Reference Range Interpretation Comments SODIUM (test code = 140 MMOL/L 137-145 N NA) POTASSIUM (test code = 4.2 MMOL/L 3.5-5.1 N K) CHLORIDE (test code = 106 MMOL/L 98-107 N CL) CARBON DIOXIDE (test 28 MMOL/L 22-30 N code = CO2) GLUCOSE (test code = 121 MG/DL 74-106 H GLU) BLOOD UREA NITROGEN 19 MG/DL 9-20 N (test code = BUN) GLOMERULAR FILTRATION > 60 Report ing units: RATE (test code = GFR) ml/mi n/1.73 m2 (Modified MDRD Formula)Referen ce Range: > or = 6 0 ml/min/1.73 m2 CREATININE (test code 1.00 MG/DL 0.66-1.25 N = CREAT) CALCIUM (test code = 9.2 MG/DL 8.4-10.2 N CA) LIPID PROFILE (CORONARY RISK)2019-06-29 07:58:00 Test Item Value Reference Range Interpretation Comments TRIGLYCERIDES (test 101 MG/DL TRIGLYCE RIDES code = TRIG) REFERENCE RANGE:Normal: < 150 mg/dLBorderline High: 150-199 mg/dLHi gh: 200-499 mg/dLVe ry High: >=500 mg/ dL CHOLESTEROL (test code 128 MG/DL <200 = CHOL) HDL CHOLESTEROL (test 39 MG/DL 40-59 L code = HDL) LIPOPROTEIN LDL (test MG/DL 0-99 code = LDL) [id number] 07:58:00 Test Item Value Reference Range Interpretation Comments MAGNESIUM (test code = MAG) 2.2 MG/DL 1.6-2.3 N BASIC METABOLIC [id number] 07:57:00 Test Item Value Reference Range Interpretation Comments SODIUM (test code = 140 MMOL/L 137-145 N NA) POTASSIUM (test code = 4.2 MMOL/L 3.5-5.1 N K) CHLORIDE (test code = 106 MMOL/L 98-107 N CL) CARBON DIOXIDE (test 28 MMOL/L 22-30 N code = CO2) GLUCOSE (test code = 121 MG/DL 74-106 H GLU) BLOOD UREA NITROGEN 19 MG/DL 9-20 N (test code = BUN) GLOMERULAR FILTRATION > 60 Report ing units: RATE (test code = GFR) ml/mi n/1.73 m2 (Modified MDRD Formula)Referen ce Range: > or = 6 0 ml/min/1.73 m2 CREATININE (test code 1.00 MG/DL 0.66-1.25 N = CREAT) CALCIUM (test code = 9.2 MG/DL 8.4-10.2 N CA) LIPID PROFILE (CORONARY RISK)2019-06-29 07:57:00 Test Item Value Reference Range Interpretation Comments TRIGLYCERIDES (test 101 MG/DL TRIGLYCE RIDES code = TRIG) REFERENCE RANGE:Normal: < 150 mg/dLBorderline High: 150-199 mg/dLHi gh: 200-499 mg/dLVe ry High: >=500 mg/ dL CHOLESTEROL (test code 128 MG/DL <200 = CHOL) HDL CHOLESTEROL (test MG/DL 40-59 code = HDL) LIPOPROTEIN LDL (test MG/DL 0-99 code = LDL) [id number] 07:57:00 Test Item Value Reference Range Interpretation Comments MAGNESIUM (test code = MAG) MG/DL 1.6-2.3 BASIC METABOLIC [id number] 07:56:00 Test Item Value Reference Range Interpretation Comments SODIUM (test code = NA) 140 MMOL/L 137-145 N POTASSIUM (test code = K) 4.2 MMOL/L 3.5-5.1 N CHLORIDE (test code = CL) 106 MMOL/L 98-107 N CARBON DIOXIDE (test code = CO2) MMOL/L 22-30 GLUCOSE (test code = GLU) MG/DL 74-106 BLOOD UREA NITROGEN (test code = MG/DL 9-20 BUN) GLOMERULAR FILTRATION RATE (test code = GFR) CREATININE (test code = CREAT) MG/DL 0.66-1.25 CALCIUM (test code = CA) MG/DL 8.7-9.7 LIPID PROFILE (CORONARY RISK)2019-06-29 07:56:00 Test Item Value Reference Range Interpretation Comments TRIGLYCERIDES (test code = TRIG) MG/DL CHOLESTEROL (test code = CHOL) 128 MG/DL <200 HDL CHOLESTEROL (test code = HDL) MG/DL 40-59 LIPOPROTEIN LDL (test code = LDL) MG/DL 0-99 [id number] 07:56:00 Test Item Value Reference Range Interpretation Comments MAGNESIUM (test code = MAG) MG/DL 1.6-2.3 BASIC METABOLIC [id number] 07:54:00 Test Item Value Reference Range Interpretation Comments SODIUM (test code = NA) 140 MMOL/L 137-145 N POTASSIUM (test code = K) 4.2 MMOL/L 3.5-5.1 N CHLORIDE (test code = CL) 106 MMOL/L 98-107 N CARBON DIOXIDE (test code = CO2) MMOL/L 22-30 GLUCOSE (test code = GLU) MG/DL 74-106 BLOOD UREA NITROGEN (test code = MG/DL 9-20 BUN) GLOMERULAR FILTRATION RATE (test code = GFR) CREATININE (test code = CREAT) MG/DL 0.66-1.25 CALCIUM (test code = CA) MG/DL 8.7-9.7 LIPID PROFILE (CORONARY RISK)2019-06-29 07:54:00 Test Item Value Reference Range Interpretation Comments TRIGLYCERIDES (test code = TRIG) MG/DL CHOLESTEROL (test code = CHOL) MG/DL <200 HDL CHOLESTEROL (test code = HDL) MG/DL 40-59 LIPOPROTEIN LDL (test code = LDL) MG/DL 0-99 [id number] 07:54:00 Test Item Value Reference Range Interpretation Comments MAGNESIUM (test code = MAG) MG/DL 1.6-2.3 BASIC METABOLIC [id number] 07:53:00 Test Item Value Reference Range Interpretation Comments SODIUM (test code = NA) MMOL/L 137-145 POTASSIUM (test code = K) MMOL/L 3.5-5.1 CHLORIDE (test code = CL) 106 MMOL/L 98-107 N CARBON DIOXIDE (test code = CO2) MMOL/L 22-30 GLUCOSE (test code = GLU) MG/DL 74-106 BLOOD UREA NITROGEN (test code = MG/DL 9-20 BUN) GLOMERULAR FILTRATION RATE (test code = GFR) CREATININE (test code = CREAT) MG/DL 0.66-1.25 CALCIUM (test code = CA) MG/DL 8.7-9.7 LIPID PROFILE (CORONARY RISK)2019-06-29 07:53:00 Test Item Value Reference Range Interpretation Comments TRIGLYCERIDES (test code = TRIG) MG/DL CHOLESTEROL (test code = CHOL) MG/DL <200 HDL CHOLESTEROL (test code = HDL) MG/DL 40-59 LIPOPROTEIN LDL (test code = LDL) MG/DL 0-99 [id number] 07:53:00 Test Item Value Reference Range Interpretation Comments MAGNESIUM (test code = MAG) MG/DL 1.6-2.3 CBC W/AUTO [id number] 07:45:00 Test Item Value Reference Range Interpretation Comments WHITE BLOOD CELL (test code = 6.1 K/MM3 3.8-9.8 N WBC) RED BLOOD CELL (test code = 5.16 M/MM3 3.95-5.67 N RBC) HEMOGLOBIN (test code = HGB) 15.9 G/DL 12.4-16.7 N HEMATOCRIT (test code = HCT) 48.2 % 35.9-49.5 N MEAN CELL VOLUME (test code = 93 fL 81.7-96.1 N MCV) MEAN CELL HGB (test code = MCH) 30.8 pg 27.6-33.2 N MEAN CELL HGB CONCETRATION 33.0 % 32.9-35.5 N (test code = MCHC) RED CELL DISTRIBUTION WIDTH 13.0 % 12.1-15.2 N (test code = RDW) PLATELET COUNT (test code = 226 K/MM3 129-368 N PLT) MEAN PLATELET VOLUME (test code 9.7 fl 7.4-10.4 N = MPV) NEUTROPHIL % (test code = NT%) 42.0 % 43-75 L IMMATURE GRANULOCYTE % (test 0.3 % 0.0-2.0 N code = IG%) LYMPHOCYTE % (test code = LY%) 41.1 % 14-44 N MONOCYTE % (test code = MO%) 10.0 % 4-13 N EOSINOPHIL % (test code = EO%) 5.6 % 0-6 N BASOPHIL % (test code = BA%) 1.0 % 0-2 N NUCLEATED RBC % (test code = 0.0 % 0-1.0 N NRBC%) NEUTROPHIL # (test code = NT#) 2.57 K/mm3 2.0-7.6 N IMMATURE GRANULOCYTE # (test 0.02 x10 3/uL 0-0.03 N code = IG#) LYMPHOCYTE # (test code = LY#) 2.51 K/mm3 1.0-3.8 N MONOCYTE # (test code = MO#) 0.61 K/mm3 0.1-0.8 N EOSINOPHIL # (test code = EO#) 0.34 K/mm3 0.0-0.2 H BASOPHIL # (test code = BA#) 0.06 K/mm3 0.0-0.2 N NUCLEATED RBC # (test code = 0.00 K/mm3 0.0-0.1 N NRBC#) CARDIAC [id number] 22:44:00<0.02[facility] ENZYMES 2017-06-25 22:44:0036[facility] [id number] 18:54:00<0.02 [facility] [id number] 18:54:0034[facility]annHEMATOLOGY 2017-06-25 05:46:0090.8[facility] VyhwpbjOEHZGVGBKW0762-22-78 05:46:00 Test Item Value Reference Range Interpretation Comments MCH (test code = MCH) 31.5 pg 27.0-31.0 [facility] ErxehdwLLWKMCLDCM4383-99-83 05:46:0047.4[facility]annHEMATOLOGY 2017-06-25 05:46:008.3[facility] EkzwrbvXHSOEBBZVZ9152-17-36 05:46:72543Risegfzp NqhcqraIWDDLFGNDQ8045-35-91 05:46:0013.6[facility] RzbpbdaTZIBDFXYWK6310-08-00 05:46:001.5[facility] VxabivsITBOLNGKYF3402-16-06 05:46:005.0[facility] JNTVHOJLLT8957-01-00 05:46:0011.8[facility] EsdwbgeQBSGYRPBNS1693-20-97 05:46:00 1.0[facility] MhkypteJTRBGZYSPI0136-61-95 05:46:000.9[facility]annHEMATOLOGY 2017-06-25 05:46:0066.3[facility] IjnkuwsACSKLMXYXL1667-67-68 05:46:0020.0[facility] TpajfelLPWBWXUCVY6850-77-23 05:46:000.9[facility] OejhzwdUUTQQGIUBB0786-11-38 05:46:000.1[facility] JxfkaitONPBETVMYT6201-56-86 05:46:000.1[facility] PMJLESDPEWID5683-27-95 05:46:0014.7[facility] UohorjoWKCLZCBVUDVU5143-26-31 05:46:73231Aobiqmen XwakehyHISNJQOTJUNN2052-30-96 05:46:009.3[facility] MAIHMMUDCAJV3123-18-43 05:46:0099[facility] AhioyifMFWOKWNCILLZ5496-12-75 05:46:00 24[facility] JpguaqcNTXIVVDLFHHC4237-69-51 05:46:000.62[facility] PQXDCDLCECEC3127-29-82 05:46:31882Wzabaksu FigzhkjDGCGNFWLPDLL8923-03-20 05:46:003.7[facility] RhtunkdWGIEMLRLJLZW5086-01-09 05:46:63933Dmlxlppq [facility] NWLKUIETFBDK2135-41-07 05:46:0024[facility] HfsbdlyOBXFOEJHFV6459-83-83 05:46:00 7.6[facility] WjnqdnbVOFXXCBTZR6630-72-41 05:46:005.21[facility]annHEMATOLOGY 2017-06-25 05:46:0034.7[facility] RdjhylqUTVQDPVQYV2330-45-47 05:46:0016.5[facility] LklbhbaVBPHPPMZCDCI9530-75-47 04:31:0014.0[facility] HermannELECTROLYTES 2017-06-24 04:31:0097[facility] DyagnkkSGCYYSVTMVKF1290-74-10 04:31:38955Mzrgwsbv BcvfdhzTAVIANEGMYPC1181-29-53 04:31:000.69[facility] VorsdqqYJHEAAQTDDBO9191-01-23 04:31:67375Crxjazse LkeqjgoTPLMHHUQESXH2092-02-25 04:31:004.0[facility] SMGHTJJCARQK2834-76-73 04:31:36732Ehofryea OrxvoehNEYKUIBKEWGA2093-64-45 04:31:0025[facility] YztdgwjLWQMDUABUXRL0515-22-97 04:31:008.9[facility] QWEHPBHPJCVV5513-25-67 04:31:0024[facility] HwivpgnGHTTFREYLO1380-44-84 04:31:00 8.1[facility] NwuqrhdXOJWUXLXYM0300-04-67 04:31:00 Test Item Value Reference Range Interpretation Comments MCH (test code = MCH) 31.1 pg 27.0-31.0 [facility] JtnthmiTCUQLAAOKM4717-53-90 04:31:0013.7[facility]annHEMATOLOGY 2017-06-24 04:31:0034.2[facility] ZjmtnnuCHXKSSTKCW8033-87-44 04:31:90795Ekjpfnnp MdziwntNHRUFZETAZ5311-99-44 04:31:005.27[facility] GocavafQKEINGZWRI3676-87-49 04:31:0047.9[facility] AyolyopITKOYZDHVB6249-56-48 04:31:0016.4[facility] HTPWKIDSKU9288-00-60 04:31:0090.9[facility] BqvzzupKUCCSRQYGM3886-85-68 04:31:00 8.1[facility] DoovcuxKLOCHCABKK7087-95-78 04:31:000.1[facility]annHEMATOLOGY 2017-06-24 04:31:000.8[facility] VivttcuWIPTCAFVBZ3933-33-60 04:31:000.4[facility] QsrzywiFMTGSPNXNP5763-87-68 04:31:001.4[facility] PnsvqfvZXQNYWCJTS4678-16-69 04:31:005.9[facility] TuiklvmUBJQGAJBRB5112-65-15 04:31:000.8[facility] MBJNJYBPGM7375-84-75 04:31:0016.8[facility] ZtnmswjODDUAWKHHN8310-44-03 04:31:00 9.5[facility] ZidmrmqMXOROCKPHK7429-82-79 04:31:0072.5[facility] HermannCHEM PANEL 2017-06-22 10:40:69980Hepliwni HermannCHEM UALKG4568-73-61 10:40:0021[facility] HermannCHEM ZCOLB4327-30-24 10:40:004.3[facility] HermannCHEM UJHXN6853-45-40 10:40:49256Bcontmnp HermannCHEM TGYWP8919-81-24 10:40:009.0[facility] HermannCHEM UATEV6045-57-63 10:40:28308Ijgkaxzq HermannCHEM GGVGM5651-76-71 10:40:0019 [facility]annCHEM NNZKZ2510-10-39 10:40:000.56[facility]annCHEM PANEL 2017-06-22 10:40:67355Kbxhgwgm HermannCHEM LKCIA8653-22-60 10:40:0017.3[facility] LlderuaPSGBPYRTJO6098-31-76 10:40:00002Desfpkps BcovbqmLZNQXYEKNW1685-21-92 10:40:007.9[facility] OihvzduWOWZXXITUP9244-05-16 10:40:007.0[facility] PJTXLDZQWI5245-94-56 10:40:0046.7[facility] BlhnqtgLSQKCDRAVJ5130-47-81 10:40:00 91.3[facility] OmkexotFMRXIZKOIX7761-95-07 10:40:0016.2[facility]annHEMATOLOGY 2017-06-22 10:40:0013.5[facility] ScfnrdxWEBDVXIIHX5255-65-18 10:40:00 Test Item Value Reference Range Interpretation Comments MCH (test code = MCH) 31.6 pg 27.0-31.0 [facility] PgmjkocCPZHCDMCAW6991-83-09 10:40:0034.6[facility]annHEMATOLOGY 2017-06-22 10:40:005.12[facility] ErszjvrJIIJDLAVSU4591-84-70 10:40:000.6[facility] CvumaejQRESWWSIFN5563-17-08 10:40:005.2[facility] PpellwaLCHFJIQIAZ6136-06-64 10:40:000.5[facility] QzxcounSRZMWAMKTK6050-19-01 10:40:001.3[facility] FDHHLJQPQL8237-48-57 10:40:000.4[facility] PkzyqybPBOZKUCPHE6655-25-98 10:40:00 74.1[facility] KiwppaoHXKDYNVMBH6078-30-39 10:40:0018.5[facility]annHEMATOLOGY 2017-06-22 10:40:006.4[facility] PxkemkdNNIGBNMGPW6896-03-61 10:50:000.1[facility]annBL[facility] B[facility] WJRLPOE7572-13-77 01:10:00Product available (06/17/17 8:10 PM) [facility] DVUUIQC7098-81-54 21:08:00Negative (06/17/17 4:08 PM) [facility] HermannCHEM GDGUG3742-43-43 21:01:311.8[facility]annHEMATOLOGY 2017-06-17 21:01:310.1[facility] GwfqvznZWZOEFYPIS9036-81-02 21:01:310.0[facility] PschfztWXCVJFFFXY2987-24-27 21:01:31 Test Item Value Reference Range Interpretation Comments Max Amplitude Rapid (test code = Max 62 mm 52-71 Amplitude Rapid) [facility]JEWKSNVCR2843[facility]-01 21:01:318.0[facility]annHEMATOLOGY 2017-06-17 21:01:31 Test Item Value Reference Range Interpretation Comments R-time Rapid (test code = R-time 0.8 min 0.4-0.7 Rapid) [facility] CenterBqhnxtgKIPAGXBFXA9173-49-39 21:01:31 Test Item Value Reference Range Interpretation Comments Split Point Rapid (test code = Split 0.8 min Point Rapid) [facility] WvalwhoNVSQKUSRJD6260-23-10 21:01:31 Test Item Value Reference Range Interpretation Comments Angle Rapid (test code = Angle 66 degrees 64-80 Rapid) [facility] QujjdlkQTLRXXWLXH9989-46-17 21:01:31 Test Item Value Reference Range Interpretation Comments K-time Rapid (test code = K-time 2.3 min 0.6-2.3 Rapid) [facility] SrwedkoSMSNRGVOHX5406-89-39 21:01:31 Test Item Value Reference Range Interpretation Comments ACT (TEG) Rapid (test code = ACT (TEG) 128 s 86-118 Rapid) [facility]DR[facility] QLVMPH5650-32-74 20:51:00See Note (06/17/17 3:51 PM) [facility] FVKLIL2133-91-30 20:51:00Negative *NA*(06/17/17 3:51 PM) [facility] ZKZUGK2483-85-02 20:51:00Positive *ABN*(06/17/17 3:51 PM) [facility] RVFPPZ4605-10-71 20:51:00Negative *NA*(06/17/17 3:51 PM) [facility]DR[facility] MEGTVI6627-08-78 20:51:00Negative *NA*(06/17/17 3:51 PM) [facility] PKGVZT9741-65-09 20:51:00Negative *NA*(06/17/17 3:51 PM) [facility] JAQWHP2023-41-44 20:51:00Negative *NA*(06/17/17 3:51 PM) [facility]DR[facility] UVOTNF0121-72-48 20:51:00Negative *NA*(06/17/17 3:51 PM) [facility] SVPDS1714-82-83 20:51:00None Seen (06/17/17 3:51 PM) [facility] IZMAD9996-12-09 20:51:00Yellow *NA*(06/17/17 3:51 PM) [facility] TYLUY3545-84-45 20:51:00 Test Item Value Reference Range Interpretation Comments UA Spec Grav (test code = UA Spec 1.015 1 Grav) [facility] DZHDG9909-27-63 20:51:00Clear (06/17/17 3:51 PM) [facility] QEWTY9271-48-05 20:51:00Negative (06/17/17 3:51 PM) [facility] LHAEW2372-28-41 20:51:00 Test Item Value Reference Range Interpretation Comments UA pH (test code = UA pH) 5.5 1 5.0-8.0 [facility] UALRU6674-19-15 20:51:00Negative *NA*(06/17/17 3:51 PM)[facility] PALMW2026-57-29 20:51:000.2[facility]UR[facility] AND QZUVX8781-50-15 20:51:00Moderate *ABN*(06/17/17 3:51 PM)[facility] AND XKEBE0872-64-57 20:51:00Negative (06/17/17 3:51 PM)[facility]INE AND MVYCF8188-78-29 20:51:00Negative (06/17/17 3:51 PM)[facility] URINE AND SZXZD4583-74-80 20:51:00<1[facility] AND FUNUA8408-75-45 20:51:002[facility]
[2021-01-14] MEDS ORDERED: GLUCAGON 1 MG/VIAL IM PRN (16:37)
[2021-01-14] MEDS ORDERED: D50W 25 GM/50 ML VIAL IV PRN (16:45)
[2021-01-14] MEDS ORDERED: NACHLORIDE 0.45% 1,000 ML IV SCH (17:00)
[2021-01-14 17:25] LABS: Absolute Lymphocytes (CBC) 1.9 K/uL (0.7-4.9); Hematocrit 44.8 % (39.6-49.0); Lymphocytes % 30.6 % (15.3-44.8); MPV 8.4 fL (7.6-11.3); RBC Red Blood Cell Count 4.96 M/uL (4.33-5.43)
[2021-01-14 17:27] LABS: Protime INR 1.03
[2021-01-14 17:39] VITALS: BMI 34.4
[2021-01-14 18:02] LABS: ALT/SGPT 43 U/L (12-78); AST/SGOT 22 U/L (15-37); Albumin 3.6 g/dL (3.4-5.0); Alkaline Phosphatase 92 U/L (45-117); BUN Blood Urea Nitrogen 22 mg/dL (7-18); Bicarbonate 27 mmol/L (21-32); Bilirubin Direct 0.2 mg/dL (0-0.2); Bilirubin Total 0.7 mg/dL (0.2-1.0); CKMB Creatine Kinase MB 3.3 ng/mL (0.3-3.6); Creatine Phosphokinase 85 U/L (39-308); Glucose Level 161 mg/dL (74-106); Magnesium 2.5 mg/dL (1.8-2.4); Phosphorus 3.8 mg/dL (2.5-4.9); Protein, Total 7.3 g/dL (6.4-8.2); Sodium Level 144 mmol/L (136-145); Troponin I < 0.02 ng/mL (0.0-0.045)
[2021-01-14 18:13] VITALS: O2SAT 100
--- NOTE | 2021-01-14 18:41 | ER ---
Nurse's Notes [facility] Name: Kevon Alicea Age: 70 yrs Sex: Male : 1950 Arrival Date: 01/14/2021 Time: 15:29 Bed 5 Private MD: Pedro Tobar V Diagnosis: Chest pain, unspecified Presentation: 01/14 15:50 Chief complaint: Patient states: Direct admit from Dr Tobar. ED Course: 15:29 Patient arrived in ED. mr 15:29 Pedro Tobar MD is Private Physician. mr 15:39 Dereje Park PA is PHCP. cp 15:39 Dereje Banegas MD is Attending Physician. cp 15:52 Xavier De Leon RN is Primary Nurse. em 18:39 Pedro Tobar MD is Hospitalizing Provider. sv 20:51 Primary Nurse role handed off by Xavier De Leon, CINDY mw2 Administered Medications: No medications were administered Outcome: 18:40 Decision to Hospitalize by Provider. sv 21:43 Patient left the ED. bb Signatures: Naomie Aiken RN RN TolentinoTegan mr Xavier De Leon RN RN em Florencia Rosales RN RN bb Dereje Park PA PA cp [place], MyKena mw2
--- NOTE | 2021-01-14 18:42 | RAD REPORT ---
EXAM DESCRIPTION: CT - Angio Aorta For Dissection - 01/14/2021 6:25 pm CLINICAL HISTORY: Chest pain radiating to the back. chest pain COMPARISON: No comparisons TECHNIQUE: CT angiography of the aorta was performed with MIPs. All CT scans are performed using dose optimization technique as appropriate and may include automated exposure control or mA/KV adjustment according to patient size. FINDINGS: A left aortic arch is present with normal branching pattern of the great vessels.No acute aortic finding is seen such as aneurysm, penetrating ulcer or dissection. The celiac axis, SMA, VAUGHN and renal arteries are patent. No evidence of pulmonary embolism. Small hiatal hernia is seen with distal esophageal thickening and lap band in place. The lungs are cl ear. The liver demonstrates no focal mass or biliary dilatation.Cholecystectomy.The spleen, pancreas, left adrenal gland and kidneys are within normal limits for arterial phase imaging.11 mm nodule seen righ t adrenal gland, likely benign. No bowel obstruction, free fluid or abscess.Normal appendix.No pathologic enlarged lymphadenopathy id entified. Mild lumbar degenerative changes. IMPRESSION: No acute aortic finding is demonstrated.
--- NOTE | 2021-01-14 20:45 | RAD REPORT ---
EXAM DESCRIPTION: US - Extrem Venous W Compress Pablo - 01/14/2021 8:20 pm CLINICAL HISTORY: elev. dd Bilateral leg edema and swelling. COMPARISON: No comparisons TECHNIQUE: Real-time sonographic interrogation of the left and right lower extremity deep venous sys tems was performed. FINDINGS: Normal compressibility, flow augmentation, phasic flow and spontaneous flow is identified in both the left and right lower extremity deep venous systems. IMPRESSION: No sonographic evidence of left or right lower extremity deep venous thrombosis.
[2021-01-14] MEDS ORDERED: INSULIN -REGULAR HUMAN 50 UNIT/0.5 ML ML SQ SCH (21:00)
== END 2021-01-14 21:43 | disposition home or self-care (01) ==
LOC: ER 15:24 → ERHOLD 15:58
PROVIDERS: ADMIT Internal Medicine; ATTEND Internal Medicine
DX: R07.9 Chest pain, unspecified (principal); I25.10 Atherosclerotic heart disease of native coronary artery without angina pectoris; I10 Essential (primary) hypertension; E11.59 Type 2 diabetes mellitus with other circulatory complications; E78.5 Hyperlipidemia, unspecified; Z88.8 Allergy status to other drugs, medicaments and biological substances; Z20.822 Contact with and (suspected) exposure to COVID-19
CPT/HCPCS: 85025; 80048; 36415; 83735; 82550; 84100; 85610; 85379; 80076; 85730; 84443; 83036; 84484; 82553; 82607; 82306; 71275; 74175; 93970; 99281; U0003; Q9967; G0378